=== PATIENT | female | born 1990 | race Hispanic/Latino ===

== ENCOUNTER 2018-10-09 23:06 | Emergency (ER) | payer OTHER ==
[2018-10-09 23:29] VITALS: BP 144/73
--- NOTE | 2018-10-10 00:11 | XRay Report ---
PROCEDURE: XR CHEST ROUTINE 2V TECHNIQUE: PA and lateral chest radiographs were obtained. HISTORY: cough COMPARISONS: None. FINDINGS: Heart: Normal. Mediastinum/Vessels: Normal. Lungs/Pleural space: Normal. Bony thorax: No acute osseous abnormality. IMPRESSION: Normal examination. This document is electronically signed by Jacque Kaiser DO., October 10 2018 12:08:55 AM ET
[2018-10-10] MEDS ORDERED: IBUPROFEN PO ONE (01:58)
[2018-10-10] MEDS ORDERED: BENADRYL PO ONE (01:58)
[2018-10-10] MEDS ORDERED: AUGMENTIN 875 MG PO ONE (01:58)
--- NOTE | 2018-10-10 02:05 | Emergency Department Report ---
- General Chief Complaint: Upper Respiratory Infection Stated Complaint: SOB,COUGH,SORT THRAOT,EAR PAIN Time Seen by Provider: 10/10/18 01:58 Source: patient Mode of arrival: Ambulatory Limitations: No Limitations - History of Present Illness Initial Comments: pt is a 28 y/o w/f who presents for bilat ear pain sinus pain and congestion and sore throat with cough x 1 week , fever or 102.3 , pt unable to see pcp advised to presents to ed as symptoms not improved by ibuprofen otc. MD Complaint: sore throat, rhinorrhea, nasal congestion, sinus pain Onset/Timin -: week(s) Severity: moderate Severity scale (0 -10): 5 Quality: aching Consistency: constant Improves With: nothing Worsens With: activity Context: sick contacts Associated Symptoms: fever, chills, rhinorrhea, nasal congestion, sore throat, cough, ear pain Treatments Prior to Arrival: none - Related Data Previous Rx's Medication Instructions Recorded Last Taken Type Amoxicillin/Potassium Clav 1 each PO BID 10 Days #20 tablet 10/10/18 Unknown Rx [Augmentin 875-125 Tablet] Benzocaine/Mentho [Cepacol X 1 each MM Q2H PRN #3 packet 10/10/18 Unknown Rx Strength] Benzonatate [Tessalon Perles] 100 mg PO Q8HR PRN #30 capsule 10/10/18 Unknown Rx Ibuprofen 800 mg PO TID PRN #30 tablet 10/10/18 Unknown Rx Allergies Allergy/AdvReac Type Severity Reaction Status Date / Time latex Allergy Unknown Verified 10/09/18 23:10 red dye Allergy Unknown Verified 10/09/18 23:10 ED Review of Systems ROS: Stated complaint: SOB,COUGH,SORT THRAOT,EAR PAIN Other details as noted in HPI Constitutional: chills, fever Eyes: denies: eye pain, eye discharge, vision change ENT: ear pain, throat pain, congestion Respiratory: cough. denies: shortness of breath, wheezing Cardiovascular: denies: chest pain, palpitations Endocrine: no symptoms reported Gastrointestinal: denies: abdominal pain, nausea, diarrhea Genitourinary: denies: urgency, dysuria, discharge Musculoskeletal: denies: back pain, joint swelling, arthralgia Skin: denies: rash, lesions Neurological: denies: headache, weakness, paresthesias Psychiatric: as per HPI Hematological/Lymphatic: denies: easy bleeding, easy bruising ED Past Medical Hx - Past Medical History Previous Medical History?: No - Surgical History Past Surgical History?: No - Social History Smoking Status: Current Every Day Smoker Substance Use Type: Marijuana - Medications Home Medications: Home Medications Medication Instructions Recorded Confirmed Last Taken Type Amoxicillin/Potassium Clav 1 each PO BID 10 Days #20 tablet 10/10/18 Unknown Rx [Augmentin 875-125 Tablet] Benzocaine/Mentho [Cepacol X 1 each MM Q2H PRN #3 packet 10/10/18 Unknown Rx Strength] Benzonatate [Tessalon Perles] 100 mg PO Q8HR PRN #30 capsule 10/10/18 Unknown Rx Ibuprofen 800 mg PO TID PRN #30 tablet 10/10/18 Unknown Rx ED Physical Exam - General Limitations: No Limitations General appearance: alert, in no apparent distress - Head Head exam: Present: atraumatic, normocephalic, normal inspection - Eye Eye exam: Present: normal appearance, PERRL, EOMI Pupils: Present: normal accommodation - ENT ENT exam: Present: mucous membranes moist - Expanded ENT Exam Expanded Ear exam: Present: normal external inspection TM/Canal exam: Erythema: Right TM, Left TM, Canal Tenderness: Right TM, Left TM Throat exam: Positive: tonsillar erythema, tonsillomegaly, other (uvula midline no exudate no lesions no stridor no swelling ). Negative: tonsillar exudate, R peritonsillar mass, L peritonsillar mass - Neck Neck exam: Present: normal inspection, full ROM, lymphadenopathy. Absent: tenderness, meningismus, thyromegaly - Respiratory Respiratory exam: Present: normal lung sounds bilaterally. Absent: respiratory distress, wheezes, stridor, chest wall tenderness - Cardiovascular Cardiovascular Exam: Present: regular rate, normal rhythm, normal heart sounds. Absent: systolic murmur, diastolic murmur, rubs, gallop - GI/Abdominal GI/Abdominal exam: Present: soft, normal bowel sounds. Absent: tenderness, bruit, hernia - Rectal Rectal exam: Present: deferred - Extremities Exam Extremities exam: Present: normal inspection, full ROM, normal capillary refill - Back Exam Back exam: Present: normal inspection, full ROM. Absent: rash noted - Neurological Exam Neurological exam: Present: alert, oriented X3, CN II-XII intact, normal gait, reflexes normal - Psychiatric Psychiatric exam: Present: normal affect, normal mood - Skin Skin exam: Present: warm, dry, intact, normal color. Absent: rash ED Course Vital Signs 10/09/18 23:25 Temperature 98.4 F Pulse Rate 75 Respiratory 16 Rate Blood Pressure 144/73 O2 Sat by Pulse 99 Oximetry ED Medical Decision Making - Radiology Data Radiology results: report reviewed, image reviewed [facility] [address] [place] [address] XRay Report Signed Patient: VALERI BOO MR#: [id number] 43 : 1990 Acct:[id number] Age/Sex: 28 / F ADM Date: 10/09/18 Loc: ED Attending Dr: Ordering Physician: ED MD EDEL Date of Service: 10/09/18 Procedure(s): XR chest routine 2V Accession Number(s): [id number] cc: ED MD EDEL Fluoro Time In Minutes: PROCEDURE: XR CHEST ROUTINE 2V TECHNIQUE: PA and lateral chest radiographs were obtained. HISTORY: cough COMPARISONS: None. FINDINGS: Heart: Normal. Mediastinum/Vessels: Normal. Lungs/Pleural space: Normal. Bony thorax: No acute osseous abnormality. IMPRESSION: Normal examination. This document is electronically signed by Toan Kaiser DO., October 10 2018 12:08:55 AM ET Transcribed By: [facility] Dictated By: TOAN KAISER MD Electronically Authenticated By: TOAN KAISER MD Signed Date/Time: 10/10/18 001 DD/ 56 TD/TT: 10/09/182356 - Medical Decision Making this is URI with AOM, and sinus pain with noc fever plan, augmentin, ibuprofen, cepachol, tessalon pearls, pt will follow up with pcp in 2-3 days. pt will follow up with pcp in 2-3 days return to ed if symptoms worsen. pt verbalized agreement and understanding of discharge plan. Critical care attestation.: If time is entered above; I have spent that time in minutes in the direct care of this critically ill patient, excluding procedure time. ED Disposition Clinical Impression: URI (upper respiratory infection) Qualifiers: URI type: unspecified viral URI Qualified Code(s): J06.9 - Acute upper respiratory infection, unspecified AOM (acute otitis media) Qualifiers: Otitis media type: serous Laterality: bilateral Recurrence: non-recurrent Qualified Code(s): H65.03 - Acute serous otitis media, bilateral Disposition: TO HOME OR SELFCARE Is pt being admited?: No Does the pt Need Aspirin: No Condition: Stable Instructions: Otitis Media (ED), Upper Respiratory Infection (ED) Prescriptions: Amoxicillin/Potassium Clav [Augmentin 875-125 Tablet] 1 each PO BID 10 Days #20 tablet Benzocaine/Mentho [Cepacol X Strength] 1 each MM Q2H PRN #3 packet PRN Reason: throat pain Ibuprofen 800 mg PO TID PRN #30 tablet PRN Reason: pain fever Benzonatate [Tessalon Perles] 100 mg PO Q8HR PRN #30 capsule PRN Reason: cough Referrals: [facility] [Outside] - 3-5 Days Forms: Work/School Release Form(ED) Time of Disposition: 02:14
== END 2018-10-10 02:40 | disposition home or self-care (01) ==
LOC: ED 23:06
DX: J06.9 Acute upper respiratory infection, unspecified (principal); F17.200 Nicotine dependence, unspecified, uncomplicated; F12.10 Cannabis abuse, uncomplicated; H65.03 Acute serous otitis media, bilateral; Z91.040 Latex allergy status; Z91.09 Other allergy status, other than to drugs and biological substances
CPT/HCPCS: 71046; 99283